=== PATIENT | male | born 1960 | race Hispanic/Latino ===

== ENCOUNTER 2024-08-06 17:14 | Emergency (ER) | payer OTHER ==
[~2024-08-06] VITALS: Ht 175.3 cm; Wt 72.6 kg
--- NOTE | 2024-08-06 17:34 | EKG ---
[facility] Test Date: 2024-08-06 Test Time: 17:31:14 Pat Name: GRETCHEN OTTO Department: [facility] Room: Gender: [employer]: 08 : 1960 Requested By: KATINA YODER Order Number: [id number] Reading MD: Rodrigo De Leon Measurements Intervals Elmer Rate: 69 P: 36 IA: 177 QRS: 23 QRSD: 93 T: 65 QT: 407 QTc: 438 Interpretive Statements Sinus rhythm Nonspecific STT abnormality No previous ECG available for comparison Electronically Signed On 08-07-2024 18:10:28 CDT by Rodrigo De Leon Please click the below link to view image of tracing.
--- NOTE | 2024-08-06 17:41 | ERN ---
ED Note History of Present Illness Stated Complaint: COUGH AND HIGH BLOOD PRESSURE Chief Complaint: Hypertension Time Seen by MD: 17:17 Time Seen by Midlevel: 17:20 Dictation: Mr. Gordon is a 63 year old gentleman with history of hypertension who presented to the emergency department this evening for evaluation of hypertension and cough. Patient reports 3-4 days of fatigue, general weakness, BLAKELY, cough, and congestion. 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 He states today he did take his medications in the morning but has been taking his blood pressure very frequently and is concerned about elevated readings. His most recent blood pressure at home was 174/104. He states he is not sure if he house very many Losartan tablets at home as he was waiting for the [facility] to send him more. He denies fever, chills, shortness of breath, chest pain, palpitations, edema, abdominal pain, nausea, vomiting, hematemesis, constipation, diarrhea, melena, hematochezia, dysuria, dizziness, or focal weakness/paresthesia Allergies: Coded Allergies: No Known Drug Allergies (Unverified Allergy, Unknown, 08/06/24) Home Meds Active Scripts Guaifenesin/Dextromethorphan (Guaifenesin-Dm 200-20 mg/10 ml) 100 Mg-10 Mg/5 Ml Liquid, 10 ML PO q 8 hours PRN for cough, #120 ML 0 Refills Prov:KATINA YODER NP 08/06/24 Losartan Potassium (Losartan Potassium) 50 Mg Tablet, 1 TAB PO DAILY for 30 Days, #30 TAB 0 Refills Prov:KATINA YODER NP 08/06/24 Past Medical History Past Medical History: Hypertension Surgical History: None PSYCH History: no pertinent psych hx Family History: CAD Social History: Negative, Lives with family, Other (Works out of town; truck driver rubbish collector. ) RN Note Reviewed/Agreed w/PFSH: Yes Review of System Dictation REVIEW OF SYSTEMS: CONSTITUTIONAL: Patient denies fevers, chills, sweats and weight changes. Reports fatigue and general weakness. EYES: Patient denies any visual symptoms. EARS, NOSE, AND THROAT: No difficulties with hearing. No symptoms of rhinitis or sore throat. CARDIOVASCULAR: Patient denies chest pains, palpitations, orthopnea and paroxysmal nocturnal dyspnea. Reports elevated blood pressure readings. RESPIRATORY: No dyspnea on exertion, no wheezing. Reports congested, nonproductive cough. GI: No nausea, vomiting, diarrhea, constipation, abdominal pain, hematochezia or melena. : No urinary hesitancy or dribbling. No nocturia or urinary frequency. No abnormal urethral discharge. MUSCULOSKELETAL: No myalgias or arthralgias. NEUROLOGIC: No chronic headaches, no seizures. Patient denies numbness, tingling or weakness. Reports dull headache. PSYCHIATRIC: Patient denies problems with mood disturbance. No problems with anxiety. ENDOCRINE: No excessive urination or excessive thirst. DERMATOLOGIC: Patient denies any rashes or skin changes. Initial Vital Sign VS Vital Signs Date Time Temp Pulse Resp B/P (MAP) Pulse Ox O2 Delivery O2 Flow Rate FiO2 08/06/24 17:19 97.7 74 16 156/99 98 Room Air 0 08/06/24 17:47 21 Physical Exam Dictation Vital signs: Reviewed. Afebrile. Constitutional: No acute distress. Non-toxic appearing. Head/Face: Normocephalic, atraumatic. Eyes: Periorbital areas with no swelling, redness, or edema. Lids and lashes are normal. Conjunctival injection is absent. Sclera anicteric. Pupils equal, round, reactive to light. ENT: Pinnas intact and no signs of trauma or erythema. Ear canals clear and no discharge. TMs no erythema. No nasal discharge or bleeding noted. Oropharynx with no exudate, redness, swelling, masses, exudates, or evidence of obstruction. Uvula midline. Mucous membranes moist. Neck: Trachea midline, no masses palpated, and no cervical lymphadenopathy. No swelling. Supple, full range of motion. Chest/Axilla: No tenderness, no crepitus, no paradoxical movement, no retractions. Cardiovascular: Regular rate, regular rhythm, no murmur, no gallops. Symmetric pulses. No peripheral edema. BP 15/99. Respiratory: Respirations even and unlabored. Lung sounds slightly diminished bases with scattered rhonchi. No wheezes or rales. Room air SpO2 98% Gastrointestinal: Inspection is normal. No distention is appreciated. Bowel sounds are normal. No mass or organomegaly . There is no tenderness. No rebound. No rigidity. No voluntary or involuntary guarding. No Hebert's sign. Neurological: Normal speech, gross motor function intact, gross sensory function intact. No focal weakness/Paresthesia. Musculoskeletal/Extremities: All extremities have full range of motion, no pain or tenderness on palpation. Symmetric pulses. Integumentary: Intact. Skin is normal color, warm and dry. Cap refill less than 3 seconds. Results (Laboratory/Radiology) Laboratory/Radiology Laboratory Tests Test 08/06/24 17:40 08/06/24 17:52 White Blood Count 6.8 K/uL (4.8-10.8) Red Blood Count 4.75 MIL/uL (4.50-6.20) Hemoglobin 13.5 g/dL (14.0-18.0) L Hematocrit 41.7 % (42-54) L Mean Corpuscular Volume 87.8 fL (79-99) Mean Corpuscular Hemoglobin 28.4 pg (27.0-33.0) Mean Corpuscular Hemoglobin Concent 32.4 g/dL (32.0-36.0) Red Cell Distribution Width 13.7 % (11.0-15.5) Platelet Count 216 K/uL (130-400) Mean Platelet Volume 10.2 fL (7.5-10.5) Immature Granulocyte % (Auto) 0.3 % (0-1) Neutrophils (%) (Auto) 56.0 % (40.0-77.0) Lymphocytes (%) (Auto) 29.5 % (21.0-51.0) Monocytes (%) (Auto) 12.3 % (3.0-13.0) Eosinophils (%) (Auto) 1.3 % (0.0-8.0) Basophils (%) (Auto) 0.6 % (0.0-5.0) Neutrophils # (Auto) 3.8 K/uL (1.8-7.7) Lymphocytes # (Auto) 2.0 K/uL (1.0-4.8) Monocytes # (Auto) 0.8 K/uL (0.1-1.0) Eosinophils # (Auto) 0.09 K/uL (0.00-0.70) Basophils # (Auto) 0.04 K/uL (0.00-0.20) Absolute Immature Granulocyte (auto 0.02 K/uL (0-1) Nucleated Red Blood Cells 0.0 % (0.0-0.19) Sodium Level 140 mmol/L (136-145) Potassium Level 4.1 mmol/L (3.5-5.1) Chloride Level 104 mmol/L (101-111) Carbon Dioxide Level 30 mmol/L (21-32) Blood Urea Nitrogen 16 mg/dL (7-18) Creatinine 1.1 mg/dL (0.5-1.3) Glomerular Filtration Rate Calc 75 mL/min (>90) Random Glucose 87 mg/dL (70-105) Total Calcium 8.4 mg/dL (8.5-10.1) L Troponin I High Sensitivity 20 ng/L (4-75) Influenza Type A Antigen Negative For Type A Influenza Type B Antigen Negative For Type B SARS-CoV-2, RNA, NAAT NEGATIVE SARS CoV-2 Labs Reviewed?: Yes EKG Comment: EKG Interpretation: Time Reviewed: 1730 Ventricular rate: 69 bpm AR Interval: 177 ms QRS duration:[address] segment elevation or depression. Clinical impression: Sinus rhythm EKG Reviewed and interpreted by Dr. Shea Guaman X-RAY Comment: PATIENT: GRETCHEN GORDON MR#: [id number] : 1960 SEX: M AGE: 63 LOCATION: [facility] ORDER 28 STATUS: [facility] REPORT#: [id number] SERVICE 26 REASON: cough ORDERING PHYSICIAN: KATINA YODER NP PROCEDURE: CXR1VW - CHEST 1VW PORTABLE CHEST RADIOGRAPH INDICATION: cough COMPARISON: None FINDINGS: Heart size is normal. The pulmonary vascularity and aurelio appear normal. No abnormal pulmonary parenchymal opacity or consolidation identified. No significant pleural effusion noted. No pneumothorax detected. IMPRESSION: No radiographic evidence for any acute cardiopulmonary process. DICTATED BY: DEJAH RAMOS MD DATE: 08/06/24 1800 ELECTRONICALLY SIGNED BY: DEJAH RAMOS MD DATE: 08/06/24 180 ED Course ED Course Orders Procedure Category Date Status Time Cbc With Differential LAB 08/06/24 Complete 17:27 Basic Metabolic Panel LAB 08/06/24 Complete 17:27 Influenza Type A & B, LAB 08/06/24 Complete Rapid 17:27 Covid Rna Naat LAB 08/06/24 Complete 17:27 Troponin I High LAB 08/06/24 Complete Sensitivity 17:27 12 Lead Ekg Tracing- EKG 08/06/24 Resulted Technical 17:27 Chest 1vw RAD 08/06/24 Resulted 17:27 Acetaminophen 325 Tab PHA 08/06/24 Complete (Tylenol 325mg Tab 19:00 Acetaminophen 325 Tab PHA 08/06/24 Complete (Tylenol 325mg Tab 18:34 Current Medications Medications (Trade) Dose Ordered Sig/Cecille Route PRN Reason Start Time Stop Time Status Last Admin Dose Admin Acetaminophen (TYLenol 325MG TAB) 325 mg STK-MED ONCE .ROUTE 08/06/24 18:34 08/06/24 18:34 DC Acetaminophen (TYLenol 325MG TAB) 650 mg ONCE ONCE PO 08/06/24 19:00 08/06/24 19:01 DC 08/06/24 18:37 Vital Signs Date Time Temp Pulse Resp B/P (MAP) Pulse Ox O2 Delivery O2 Flow Rate FiO2 08/06/24 17:47 98.2 70 16 156/92 98 Room Air* 0 21 08/06/24 17:19 97.7 74 16 156/99 98 Room Air 0 Uneventful ED course. Vital signs remained stable; afebrile. Blood pressure 156/92. Room air SpO2 98%. While in the ED he received dose Tylenol. Twelve lead EKG reflects a sinus rhythm without ST elevation or depression. Chest x- ray unremarkable with clear lung obrien. Laboratory findings as noted below. Influenza, COVID, and strep are negative. H/H 13.5/41.7, Ca 8.4, and troponin negative. Findings were discussed with patient and stressed importance of taking antihypertensive medication as instructed by PCP. Medical Decision Making MDM MDM: Differential diagnosis: Rebound hypertension, influenza, COVID, stroke, pneumonia, cardiac arrhythmia Rationale: Tests considered and ordered secondary to shared decision making include: Lab, EKG, chest x-ray Previous outside records reviewed: Old ER visits. Risk of complication and/or morbidity or mortality of patient management: None Medications-Per medication reconciliation Need for hospitalization: Patient does not meet criteria for hospitalization. Need for emergency major/minor surgery: No There are no social concerns with this patient. Prescription drug management: Guaifenesin, losartan Prescriptions will include symptomatic care Patient's prior external medical records from other ER visits were reviewed by me as indicated. Prior testing and results from previous visits were reviewed. Prior tests were taken into account with medical decision making and resource utilization, independent historian/historians were used to obtain complete medical history. I independently interpreted the test that were performed, results were reviewed by me and considered findings on radiology if ordered. Medical management and examination interpretation discussions were had by me with other qualified healthcare professionals as indicated for the patient's care. DX & DISP Disposition: Discharge Departure Impression: Primary Impression: Hypertension Additional Impressions: Viral illness, Cough, Rebound hypertension Condition: Stable Scripts Guaifenesin/Dextromethorphan (Guaifenesin-Dm 200-20 mg/10 ml) 100 Mg-10 Mg/5 Ml Liquid 10 ML PO q 8 hours PRN for cough, #120 ML 0 Refills Prov: KATINA YODER NP 08/06/24 Losartan Potassium (Losartan Potassium) 50 Mg Tablet 1 TAB PO DAILY for 30 Days, #30 TAB 0 Refills Prov: KATINA YODER NP 08/06/24 Additional Instructions: Rest. Isolate at home until symptoms are resolving. Resume blood pressure medication. I have provided you with a prescription for losartan until [facility]. keep a log of your blood pressure readings twice daily and follow up [facility] this [facility]. Return to the emergency department for any worsening of symptoms or concerns. Referrals: SELF,REFERRAL (PCP) Time of Disposition: 18:51 ATTESTATION BY PHYSICIAN I PERFORMED THE SUBSTANTIVE PORTION OF THE VISIT. I HAVE REVIEWED AND PERSONALLY MADE AND APPROVED THE MANAGEMENT PLAN . KATINA YODER NP Aug 06, 2024 17:41 RADHA GUAMAN MD Aug 09, 2024 07:34
[2024-08-06 17:47] VITALS: BP 156/92; PULSE 70; RESP 16; TEMP 98.3; O2SAT 98
[2024-08-06 17:48] LABS: BASOPHILS # (AUTO) 0.04 K/uL (0.00-0.20); BASOPHILS % (AUTO) 0.6 % (0.0-5.0); EOSINOPHILS # (AUTO) 0.09 K/uL (0.00-0.70); EOSINOPHILS % (AUTO) 1.3 % (0.0-8.0); HEMATOCRIT 41.7 % (42-54); IMMATURE GRANULOCYTE ABSOLUTE 0.02 K/uL (0-1); LYMPHOCYTES % (AUTO) 29.5 % (21.0-51.0); MEAN CORPUSCULAR HEMOGLOBIN 28.4 pg (27.0-33.0); MEAN CORPUSCULAR HGB CONC 32.4 g/dL (32.0-36.0); MEAN CORPUSCULAR VOLUME 87.8 fL (79-99); MONOCYTES # (AUTO) 0.8 K/uL (0.1-1.0); MONOCYTES % (AUTO) 12.3 % (3.0-13.0); NEUTROPHILS # (AUTO) 3.8 K/uL (1.8-7.7); PLATELET COUNT (AUTO) 216 K/uL (130-400); RED BLOOD CELL COUNT(AUTO) 4.75 MIL/uL (4.50-6.20); RED CELL DISTRIBUTION WIDTH 13.7 % (11.0-15.5); WHITE BLOOD COUNT (AUTO) 6.8 K/uL (4.8-10.8)
[2024-08-06 17:56] LABS: CREATININE 1.1 mg/dL (0.5-1.3); POTASSIUM 4.1 mmol/L (3.5-5.1)
--- NOTE | 2024-08-06 18:03 | HMCIMG ---
PORTABLE CHEST RADIOGRAPH INDICATION: cough COMPARISON: None FINDINGS: Heart size is normal. The pulmonary vascularity and aurelio appear normal. No abnormal pulmonary parenchymal opacity or consolidation identified. No significant pleural effusion noted. No pneumothorax detected. IMPRESSION: No radiographic evidence for any acute cardiopulmonary process.
[2024-08-06 18:20] LABS: SARS-CoV-2, RNA, NAAT NEGATIVE SARS CoV-2 (NEGATIVE)
[2024-08-06 18:31] LABS: INFLUENZA TYPE A Negative For Type A (NEGATIVE); INFLUENZA TYPE B Negative For Type B (NEGATIVE)
[2024-08-06] MEDS: acetaMINOPHEN 325 MG TAB ONE (18:36)
[2024-08-06] MEDS: acetaMINOPHEN 325 MG TAB PO ONE (18:37)
[2024-08-06] MEDS ORDERED: LOSA50TA64 PO (18:50)
[2024-08-06] MEDS ORDERED: GUAIFDM PO (18:50)
== END 2024-08-06 19:05 | disposition home or self-care (01) ==
LOC: EDH 17:14
DX: I10 Essential (primary) hypertension (principal); B34.9 Viral infection, unspecified; R05.9 Cough, unspecified; Z20.822 Contact with and (suspected) exposure to COVID-19
CPT/HCPCS: 36415; 71045; 80048; 84484; 85025; 87635; 87804; 93005; 99285